=== PATIENT | male | born 1950 | race Caucasian/White ===

== ENCOUNTER 2018-08-25 13:05 | Emergency (ER) | payer MEDICARE, OTHER, SELFPAY ==
[2018-08-25 13:12] VITALS: BP 141/77; PULSE 75; RESP 14; TEMP 36.4; O2SAT 99
--- NOTE | 2018-08-25 14:28 | ED.WOUNDLAC ---
HPI - Wound/Laceration General Chief Complaint: Wound/Laceration Stated Complaint: Cut left index finger Time Seen by Provider: 08/25/18 13:40 Source: patient Mode of arrival: ambulatory Limitations: no limitations History of Present Illness HPI narrative: Patient states that he sustained a laceration to his left index finger when the finger made contact with a convex grinder blade that was still spinning. Patient states he has had full range of motion of the finger since the incident, which happened about an hour ago. He states he does not think that the blade made contact with the bone. No other injuries or complaints at this time. Related Data Previous Rx's Medication Instructions Recorded Test Strips - Freestyle strip Q DAY #100 09/12/16 albuterol sulfate [Ventolin HFA] 2 puff INH Q4HP #2 inh 10/23/17 fluticasone-salmeterol [Advair 1 puff INH BIDRT #3 inh 10/23/17 Diskus] glipizide [Glucotrol XL] 2.5 mg PO BID #180 tab 11/22/17 finasteride 5 mg PO QDAY #90 tab 11/26/17 tamsulosin [Flomax] 0.4 mg PO Q DAY #180 cap 11/26/17 fluticasone 1 spray INTRANASAL BID #16 gm 02/14/18 ciprofloxacin 250 mg tablet 500 mg PO BID #10 tab 07/09/18 levofloxacin 500 mg tablet 500 mg PO DAILY #7 tab 07/09/18 prednisone 20 mg tablet 40 mg PO DAILY #20 tab 07/09/18 Allergies Allergy/AdvReac Type Severity Reaction Status Date / Time No Known Drug Allergies Allergy Verified 08/25/18 13:21 Review of Systems Review of Systems All systems reviewed & are unremarkable except as noted in HPI and below Constitutional Denies chills, Denies fever(s), Denies lethargy and Denies weakness Eyes Denies change in vision, Denies eye discharge, Denies irritation and Denies loss of vision ENT Ears, Nose, Mouth, and Throat: Denies change in voice, Denies neck pain and Denies sore throat Cardiovascular Denies chest pain, Denies irregular heart rhythm, Denies lightheadedness, Denies palpitations, Denies dyspnea, Denies dyspnea on exertion and Denies orthopnea Respiratory Denies cough, Denies dyspnea, Denies dyspnea on exertion and Denies wheezing Gastrointestinal Gastrointestinal: Denies abdominal pain, Denies change in bowel habits, Denies diarrhea, Denies nausea and Denies vomiting Genitourinary Denies hematuria, Denies flank pain, Denies urinary incontinence and Denies urinary urgency Musculoskeletal Denies neck pain Integumentary/Breasts Denies pruritus, Denies erythema, Denies rash and Denies wounds Comments: Left 2nd finger laceration Neurologic Denies confusion, Denies loss of vision and Denies weakness Psychiatric Denies anxiety, Denies confusion, Denies depression, Denies homicidal ideation and Denies suicidal ideation Endocrine Denies palpitations Hematologic/Lymphatic Denies easy bruising Allergic/Immunologic Denies wheezing FORMERLY [facility], 1928–1983 Medical History Asthma (Chronic 1989) BPH (benign prostatic hyperplasia) (Chronic 2005) Sarcoidosis (Chronic) Cataract (Resolved 2009) Chicken pox (Resolved 1954) Measles (Resolved 1955) Retinal detachment (Resolved) Surgical History Anesthesia (Resolved) History of cataract removal with insertion of prosthetic lens (Resolved 2009) History of colonoscopy (Resolved 02/17/10) History of eye surgery (Resolved 2016) History of lung biopsy (Resolved) Status post functional endoscopic sinus surgery (FESS) (Resolved ) Family History Father Cancer Lymphoma Brother No problems noted. Brother No problems noted. Mother No problems noted. Sister No problems noted. Social History marital status: Smoking Status: Former smoker alcohol intake: current (1-2 A DAY ) substance use type: does not use Exam Initial Vital Signs Initial Vital Signs: Vital Signs Temperature 97.6 F 08/25/18 13:12 Pulse Rate 75 08/25/18 13:12 Respiratory Rate 14 08/25/18 13:12 Blood Pressure 141/77 H 08/25/18 13:12 Pulse Oximetry 99 08/25/18 13:12 Const General: cooperative and well developed Nutritional Appearance: well nourished Orientation: alert, awake, oriented x3 and not confused HENMT Head: normocephalic and atraumatic Ears: external ears normal and TM's normal bilaterally Nose: external nose normal and No nasal discharge Face and sinus: sinuses nontender, face symmetric, no sinus tenderness and No dry mucous membranes Mouth: oral mucosae normal and moist mucous membranes Teeth and gingiva: dentition normal Throat: tonsils normal and uvula midline Eyes General: appearance normal, both eyes and all related structures Eyelids: eyelids normal Conjunctivae: conjunctivae normal Sclera: sclerae normal Pupils: PERRL EOM: EOM intact bilaterally Neck Neck: normal visual inspection, trachea midline, No lymphadenopathy, No midline deformity and No JVD Lymphatic: No lymphedema Chest Chest: normal inspection of the chest Resp Effort & Inspection: normal respiratory effort, able to speak in complete sentences, no respiratory distress and no use of accessory muscles Cardio Rate: regular rate Rhythm: regular rhythm Pulses: normal peripheral pulses Back/Spine/Pelvis Back: No CVA tenderness Cervical Spine: cervical ROM normal and No pain with cervical ROM Thoracic/Lumbar Spine: thoracic and lumbar spine normal to inspection Skin General: no rashes or lesions noted, No jaundice and No petechiae Other: Patient is a 2 cm laceration on the dorsal radial aspect of his left index finger, overlying the proximal interphalangeal joint. No foreign material is noted in the. No tendon injury or intact bound. Bleeding is controlled. Neuro General: alert, oriented x3, gait normal and no focal motor deficits Speech: speech normal Extrem General: full ROM Other: Patient has full range of motion and intact strength in his left index finger. He is able in particular to extend against resistance without difficulty at both the DIP and PIP joints Psych Appearance: well kempt Mental Status: mental status grossly normal Attitude: cooperative Thought Content: normal and suicidality Judgment: judgment good Procedures Laceration Repair Laceration 1: Site: hand Side (If applicable): left Size (cm): 2 Description: linear Depth: simple, single layer Local Anesthetic: lidocaine 1% Amount of anesthesia used (mL): 2 Pre-repair: wound explored, irrigated extensively and deep structures intact Skin layer closed with: nylon Size (cm): 5-0 Number of sutures: 5 Technique: simple, interrupted Course Course Narrative: Patient's laceration was repaired, as above. We have discussed care of the wound at home, as well as the need for suture removal in 7 days. We have also discussed the signs of infection and the need for return without delay should these occur. Vital Signs - 8 hr 08/25/18 13:12 Temperature 97.6 F Pulse Rate 75 Respiratory Rate 14 Blood Pressure 141/77 H Pulse Oximetry 99 MDM - Wound/Laceration Medical Records Attestation: I reviewed the patient's medical records. Discharge Plan Departure Patient Disposition: Home Clinical Impression: Laceration Discharge Date/Time: 08/25/18 15:14 Interventions: ED Discharge Assessment Last Done: 08/25/18 15:13 Instructions: DI for Laceration Repair Activity Restrictions/Additional Instructions: Please keep your wound clean and dry, but do not immerse, rub, or scrub the wound until sutures have been removed. You should have the sutures removed in 7 days, either by your primary care physician or urgent care. If the wound split apart, develops redness spreading away from it, or drains pus, you should return to the emergency department immediately to have it evaluated for infection. Prescriptions: No Action Test Strips - Freestyle Q DAY Qty: 100 RF: 1 fluticasone-salmeterol [Advair Diskus] 500 MCG/50 MCG blister with device 1 puff INH BIDRT Qty: 3 RF: 3 albuterol sulfate [Ventolin HFA] 90 MCG/PUFF HFA aerosol inhaler 2 puff INH Q4HP Qty: 2 RF: 1 glipizide [Glucotrol XL] 2.5 MG tablet extended release 24hr 2.5 mg PO BID Qty: 180 RF: 1 tamsulosin [Flomax] 0.4 MG capsule,extended release 24hr 0.4 mg PO Q DAY Qty: 180 RF: 3 finasteride 5 MG tablet 5 mg PO QDAY Qty: 90 RF: 3 fluticasone 50 mcg/actuation spray,suspension 1 spray Intranasal BID Qty: 16 RF: 3 levofloxacin [Levaquin] 500 mg tablet 500 mg PO DAILY Qty: 7 RF: 0 prednisone 20 mg tablet 40 mg PO DAILY Qty: 20 RF: 0 ciprofloxacin HCl [Cipro] 250 mg tablet 500 mg PO BID Qty: 10 RF: 0 Referrals: Garrett Tirado MD [Primary Care Provider] - ( Please follow up in about 7 days for suture removal.)
--- NOTE | 2018-08-25 15:13 | PC.NURSE ---
pt sutures dressed with bandage, pt tolerated procedure. CMS intact. provider aware no new orders at this time.
== END 2018-08-25 15:14 | disposition home or self-care (01) ==
PROVIDERS: Emergency Provider Emergency Medicine; Family Provider Family Medicine; PCP Family Medicine
DX: S61.211A Laceration without foreign body of left index finger without damage to nail, initial encounter (principal); W31.1XXA Contact with metalworking machines, initial encounter
CPT/HCPCS: 12001; 12002; 99282; 99283

== ENCOUNTER → 2018-09-16 08:26 | Outpatient (CLI) | payer MEDICARE, OTHER, SELFPAY ==
[2018-09-16 08:59] LABS: Add Manual Diff / Slide Review NO; Basophils Percent Auto 1.2 % (0-2); Hematocrit 40.8 % (41-53); Hemoglobin 13.4 g/dL (13.5-17.5); Lymphocytes Percent Auto 26.3 % (25-40); Mean Corpuscular Hemoglobin 30.8 PG (26-34); Mean Corpuscular Volume 93.3 fL (80-100); Monocytes Percent Auto 10.1 % (3-14); Neutrophils Absolute Auto 2700 /uL (3000-5900); Neutrophils Percent Auto 50.4 % (50-75); Platelet Count 133 X10^3/uL (150-400); Red Blood Cell Count 4.37 X10^6/uL (4.5-5.9); Red Cell Distribution Width 13.5 % (11.6-14.8); White Blood Cell Count 5.4 X10^3/uL (4.5-11.0)
[2018-09-16 09:06] LABS: Hemoglobin A1C% w Est Avg Glu 5.7 % (4.0-6.0)
[2018-09-16 09:35] LABS: Alanine Aminotransferase 23 IU/L (21-72); Albumin 4.3 g/dL (3.5-5.0); Albumin Globulin Ratio 1.2 (1.0-2.8); Alkaline Phosphatase 70 U/L (38-126); Aspartate Aminotransferase 27 IU/L (17-59); BUN Creatinine Ratio 26.4 (6-22); Bilirubin Total 1.1 mg/dL (0.2-1.3); Blood Urea Nitrogen 29 mg/dL (9-20); Calcium 9.7 mg/dL (8.4-10.2); Carbon Dioxide 30 mmol/L (22-32); Chloride 102 mmol/L (98-107); Cholesterol 197 mg/dL (140-199); Estimated Glomerular Filt Rate > 60.0 mL/min (>60); Globulin 3.5 g/dL (1.7-4.1); Glucose 132 mg/dL (80-110); HDL Cholesterol 86 mg/dL (40-60); HEMOLYSIS < 15 (0-50); LDL Cholesterol Calculated 96 mg/dL (<100); Potassium 4.5 mmol/L (3.4-5.1); Sodium 142 mmol/L (137-145); Total Protein 7.8 g/dL (6.3-8.2); Triglycerides 77 mg/dL (35-150)
[2018-09-16 10:01] LABS: TSH w/ Reflex to FT4 2.76 uIU/mL (0.47-4.68)
== END ==
PROVIDERS: Family Provider Family Medicine; PCP Family Medicine; Visit Provider Family Medicine
DX: E11.9 Type 2 diabetes mellitus without complications (principal); E78.5 Hyperlipidemia, unspecified; J44.9 Chronic obstructive pulmonary disease, unspecified; Z12.5 Encounter for screening for malignant neoplasm of prostate
CPT/HCPCS: 36415; 80053; 80061; 83036; 84443; 85025; G0103

== ENCOUNTER → 2019-09-16 08:31 | Outpatient (CLI) | payer MEDICARE, OTHER, SELFPAY ==
[2019-09-16 09:24] LABS: Add Manual Diff / Slide Review NO; Basophils Absolute Auto 0 /uL (0-100); Basophils Percent Auto 0.7 % (0-2); Eosinophils Absolute Auto 400 /uL (0-450); Eosinophils Percent Auto 6.5 % (2-4); Hematocrit 39.9 % (41-53); Hemoglobin 13.6 g/dL (13.5-17.5); Lymphocytes Absolute Auto 1600 /uL (1100-4500); Lymphocytes Percent Auto 26.4 % (25-40); Mean Corpuscular Hemoglobin 31.6 PG (26-34); Mean Corpuscular Volume 92.7 fL (80-100); Monocytes Absolute Auto 600 /uL (0-900); Monocytes Percent Auto 10.7 % (3-14); Neutrophils Absolute Auto 3300 /uL (1500-7000); Neutrophils Percent Auto 55.7 % (50-75); Platelet Count 147 X10^3/uL (150-400); Red Cell Distribution Width 13.2 % (11.6-14.8); White Blood Cell Count 5.9 X10^3/uL (4.5-11.0)
[2019-09-16 09:38] LABS: Alanine Aminotransferase 17 IU/L (<50); Albumin 4.5 g/dL (3.5-5.0); Albumin Globulin Ratio 1.4 (1.0-2.8); Alkaline Phosphatase 79 U/L (38-126); Aspartate Aminotransferase 29 IU/L (17-59); BUN Creatinine Ratio 25.8 (6-22); Blood Urea Nitrogen 31 mg/dL (9-20); Calcium 9.5 mg/dL (8.4-10.2); Carbon Dioxide 28 mmol/L (22-32); Chloride 104 mmol/L (98-107); Cholesterol 211 mg/dL (140-199); Estimated Glomerular Filt Rate 59.7 mL/min (>60); Globulin 3.3 g/dL (1.7-4.1); Glucose 116 mg/dL (80-110); HDL Cholesterol 83 mg/dL (40-60); HEMOLYSIS < 15 (0-50); Hemoglobin A1C% w Est Avg Glu 5.6 % (4.0-6.0); LDL Cholesterol Calculated 116 mg/dL (<100); Potassium 4.1 mmol/L (3.4-5.1); Sodium 140 mmol/L (137-145); Total Protein 7.8 g/dL (6.3-8.2); Triglycerides 60 mg/dL (35-150)
[2019-09-16 10:08] LABS: Prostate Specific Antigen Scrn 1.32 ng/mL (0.1-4.0)
[2019-09-16 10:37] LABS: TSH w/ Reflex to FT4 3.31 uIU/mL (0.47-4.68)
== END ==
PROVIDERS: PCP Family Medicine; Visit Provider Family Medicine
DX: Z12.5 Encounter for screening for malignant neoplasm of prostate (principal); E11.9 Type 2 diabetes mellitus without complications
CPT/HCPCS: 36415; 80053; 80061; 83036; 84443; 85025; G0103

== ENCOUNTER → 2020-11-05 12:25 | Outpatient (CLI) | payer MEDICARE, OTHER, SELFPAY ==
[2020-11-05] MEDS: COVID-19 VACC #1, MRNA(MOD) 100 MCG/0.5 ML VIAL IM (12:27)
== END ==
PROVIDERS: PCP Family Medicine; Visit Provider Internal Medicine
DX: Z23 Encounter for immunization (principal)
CPT/HCPCS: 0011A; 91301

== ENCOUNTER → 2020-11-25 07:58 | Outpatient (CLI) | payer MEDICARE, OTHER, SELFPAY ==
--- NOTE | 2020-11-25 08:00 | DI.RAD.S_ITS ---
PROCEDURE: XR KNEE LT 3V INDICATIONS: knee pain TECHNIQUE: 3 views of the knee were acquired. COMPARISON: [facility], , KNEE 3V LEFT, 01/12/2010, 11:32. FINDINGS: Bones: No fractures or dislocations. No suspicious bony lesions. Degenerative changes are minimal. Soft tissues: No joint effusion. No suspicious soft tissue calcifications. IMPRESSION: Minimal degenerative changes. No acute abnormality. If the pain continues, consider MRI. Dictated by: Bryant Wells M.D. on 11/25/2020 at 8:29 Approved by: Bryant Wells M.D. on 11/25/2020 at 8:30
[2020-11-25 08:57] LABS: Add Manual Diff / Slide Review NO; Basophils Absolute Auto 0 /uL (0-100); Basophils Percent Auto 0.7 % (0-2); Eosinophils Absolute Auto 400 /uL (0-450); Eosinophils Percent Auto 7.3 % (2-4); Hemoglobin 13.3 g/dL (13.5-17.5); Lymphocytes Absolute Auto 1500 /uL (1100-4500); Lymphocytes Percent Auto 32.1 % (25-40); Mean Corpuscular HGB Conc 33.2 % (30-36); Mean Corpuscular Hemoglobin 30.9 PG (26-34); Monocytes Absolute Auto 600 /uL (0-900); Monocytes Percent Auto 11.8 % (3-14); Neutrophils Absolute Auto 2300 /uL (1500-7000); Neutrophils Percent Auto 48.1 % (50-75); Platelet Count 127 X10^3/uL (150-400); Red Cell Distribution Width 12.9 % (11.6-14.8); White Blood Cell Count 4.8 X10^3/uL (4.5-11.0)
[2020-11-25 09:04] LABS: Hemoglobin A1C% w Est Avg Glu 5.8 % (4.0-6.0)
[2020-11-25 09:38] LABS: Alanine Aminotransferase 15 IU/L (<50); Albumin 4.1 g/dL (3.5-5.0); Albumin Globulin Ratio 1.2 (1.0-2.8); Alkaline Phosphatase 69 U/L (38-126); Aspartate Aminotransferase 28 IU/L (17-59); BUN Creatinine Ratio 32.5 (6-22); Bilirubin Total 0.7 mg/dL (0.2-1.3); Blood Urea Nitrogen 39 mg/dL (9-20); Calcium 9.6 mg/dL (8.4-10.2); Carbon Dioxide 32 mmol/L (22-32); Chloride 104 mmol/L (98-107); Cholesterol 197 mg/dL (140-199); Estimated Glomerular Filt Rate 59.5 mL/min (>60); Globulin 3.3 g/dL (1.7-4.1); Glucose 117 mg/dL (80-110); HDL Cholesterol 88 mg/dL (40-60); HEMOLYSIS < 15 (0-50); LDL Cholesterol Calculated 100 mg/dL (<100); Potassium 4.8 mmol/L (3.4-5.1); Sodium 139 mmol/L (137-145); Total Protein 7.4 g/dL (6.3-8.2); Triglycerides 44 mg/dL (35-150)
[2020-11-25 10:00] LABS: TSH w/ Reflex to FT4 1.95 uIU/mL (0.47-4.68)
[2020-11-25 10:03] LABS: Prostate Specific Antigen 1.02 ng/mL (0.10-4.00)
[2020-11-25 10:52] LABS: Creatinine Urine Random 163.5 mg/dL
[2020-11-25 10:56] LABS: Microalbumi Creatinin Ratio Ur 14.6 ug/mg CR (<30); Microalbumin Urine Random 2.4 mg/dL (0-1.6)
== END ==
PROVIDERS: PCP Family Medicine; Referring Provider Family Medicine; Visit Provider Family Medicine
DX: M25.562 Pain in left knee (principal); E11.9 Type 2 diabetes mellitus without complications; N40.0 Benign prostatic hyperplasia without lower urinary tract symptoms; D69.6 Thrombocytopenia, unspecified; N18.2 Chronic kidney disease, stage 2 (mild)
CPT/HCPCS: 36415; 73562; 80053; 80061; 82043; 82570; 83036; 84153; 84443; 85025

== ENCOUNTER → 2020-12-03 13:03 | Outpatient (CLI) | payer MEDICARE, OTHER, SELFPAY ==
[2020-12-03] MEDS: COVID-19 VACC #2, MRNA(MOD) 100 MCG/0.5 ML VIAL IM (13:07)
== END ==
PROVIDERS: PCP Family Medicine; Visit Provider Internal Medicine
DX: Z23 Encounter for immunization (principal)
CPT/HCPCS: 0012A; 91301

== ENCOUNTER → 2021-04-15 08:31 | Outpatient (CLI) | payer MEDICARE, OTHER, SELFPAY ==
[2021-04-15 11:12] LABS: COVID19 -Nasal RAPID Negative (Negative)
== END ==
PROVIDERS: PCP Family Medicine; Visit Provider Specialist
DX: Z20.822 Contact with and (suspected) exposure to COVID-19 (principal)
CPT/HCPCS: 87635; C9803

== ENCOUNTER 2021-04-18 08:09 | Day surgery (SDC) | payer MEDICARE, OTHER, SELFPAY ==
[2021-04-18 08:24] VITALS: BP 152/85; PULSE 48; RESP 14; TEMP 36.2; O2SAT 97; BMI 20.3
[2021-04-18] MEDS: LACTATED RINGERS 1,000 ML 100 ML IV (08:31)
--- NOTE | 2021-04-18 08:59 | PM.HP.1 ---
History of Present Illness History of Present Illness Date Patient Seen: 04/18/21 Time Patient Seen: 08:59 Chief complaint: SCREENING COLONOSCOPY Narrative: The patient presents for colorectal sreening. Previous colonoscopy 11 years ago normal. No personal or family history of colon cancer. On further history denies any recent gastrointestinal symptoms. No nausea, vomiting, abdominal pain, loss of appetite, unexplained weight loss, change in bowel habits, diarrhea, constipation, melena, hematochezia, or bright red blood per rectum. Patient History Medical History Asthma (1989) BPH (benign prostatic hyperplasia) (2005) Cataract (2009) Chicken pox (1954) Measles (1955) Retinal detachment Sarcoidosis Surgical History Anesthesia History of cataract removal with insertion of prosthetic lens (2009) History of colonoscopy (02/17/10) History of eye surgery (2016) History of lung biopsy Status post functional endoscopic sinus surgery (FESS) (~1989) Family & Social History Family History Father Cancer Lymphoma Brother No problems noted. Brother No problems noted. Mother No problems noted. Sister No problems noted. Social History: household members spouse Tobacco & Substance use: Tobacco type cigarettes Smoking Status Former smoker alcohol intake current alcohol intake frequency 0-2 drinks per day Substance Use Type does not use Meds Home Medications and Allergies Home Medications Medication Instructions Recorded Confirmed Type Test Strips - Freestyle strip Q DAY #100 09/12/16 11/23/20 Rx albuterol sulfate 90 mcg/actuation 2 puff INHALATION Q4HP PRN #18 gram 07/15/19 04/18/21 Rx aerosol inhaler (Ventolin HFA) fluticasone 500 mcg-salmeterol 50 1 ea INHALATION BID #180 each 05/05/20 04/18/21 Rx mcg/dose blistr powdr for inhalation (Advair Diskus) finasteride 5 mg tablet 5 mg PO QDAY #90 tab 02/14/21 04/18/21 Rx tamsulosin 0.4 mg capsule (Flomax) 0.4 mg PO Q DAY #180 cap 02/14/21 04/18/21 Rx fluticasone propionate 50 1 spray INTRANASAL BID PRN 04/18/21 04/18/21 History mcg/actuation nasal spray,suspension glipizide 2.5 mg tablet, extended 2.5 mg PO DAILY 04/18/21 04/18/21 History release 24 hr (Glucotrol XL) Allergies Allergy/AdvReac Type Severity Reaction Status Date / Time No Known Drug Allergies Allergy Verified 04/18/21 08:18 Review of Systems Review of Systems ROS: Yes All systems reviewed with the patient and are negative except as otherwise documented Exam Vital Signs (past 8 hours): - 04/18/21 08:24 Temperature 97.2 F L Pulse Rate 48 L Respiratory Rate 14 Blood Pressure 152/85 H Pulse Oximetry 97 Oxygen Delivery Method Room Air Narrative Exam Narrative: GENERAL-well developed elderly male, no acute distress HEENT-no scleral icterus, hearing intact NECK-no JVD, trachea midline CVS- regular rate, no peripheral edema RESP-unlabored respiratory effort, no audible wheezing GI-soft, nontender nondistended MSK-no cyanosis or clubbing, extremities without deformity SKIN-warm, dry NEURO-alert and oriented, no focal deficits PYSCH-Appropriate mood and affect Assessment & Plan Assessment & Plan narrative: The patient requires colorectal screening and colonoscopy is recommended. Technical details were discussed. Risks, benefits, alternatives explained. Risks including but not limited to myocardial infarction, aspiration, bleeding, pain, missed lesion, incomplete examination, need for further radiographic studies, colonic perforation, and need for major abdominal surgery were discussed. All questions were answered to their satisfaction, and they are in agreement with this plan.
[2021-04-18 09:30] VITALS: BP 142/74; PULSE 84; RESP 16; O2SAT 100
--- NOTE | 2021-04-18 10:17 | SUR.PHASEII ---
Pt returned to preop from endo. Report from CLAU Padron. EKG done - con't to show PVC's. Pt denies SOB or chest pain. Dr Yanez at bedside talking with pt. Procedure cancelled. Pt discharged to home. I spoke with pt's and explained reason for cancellation. Pt will follow up with PCP.
== END 2021-04-18 09:40 | disposition home or self-care (01) ==
PROVIDERS: PCP Family Medicine; Referring Provider Surgery; Visit Provider Surgery
PROC: 0DJD8ZZ Inspection of Lower Intestinal Tract, Via Natural or Artificial Opening Endoscopic (ICD-10-PCS; CPT 45378; principal; 2021-04-18 09:15)
DX: Z12.11 Encounter for screening for malignant neoplasm of colon (principal); Z53.09 Procedure and treatment not carried out because of other contraindication; I47.2 Ventricular tachycardia
CPT/HCPCS: G0121; 93005; 93010

== ENCOUNTER → 2021-05-03 08:50 | Outpatient (CLI) | payer MEDICARE, OTHER, SELFPAY ==
--- NOTE | 2021-05-03 08:51 | DI.ECHO.S_ITS ---
[facility] +---------+ : : [address] : [place] : : : : [id number] : : : : Phone: [phone]+ Echocardiogram Report + + :Name: DODIE MARKS Study Date: 05/03/2021 Height: 71 in : :[facility] ReadingLocation: Weight: 150 lb : : Gender: Male BSA: 1.9 m2 : :: 1950 Age: 71 yrs BP: 146/80 mmHg: :Reason For Study: VENTIRUCLAR PREMATURE DEPOLARIZATION : :Ordering Physician: ISABEL, : :JOSE RAUL Performed By: Natalia Waldrop : :Referring: JOSE RAUL HALL : + + Interpretation Summary 1) Normal left ventricular size and thickness with moderately reduced systolic function (EF 35-40%. 2) Normal right ventricular size and function. 3) No significant valvular abnormalities. 4) No prior Echo availalbe for comparison. Procedure: A two-dimensional transthoracic echocardiogram with color flow and Doppler was performed. The study quality was technically adequate. There is no prior echocardiogram noted for this patient. The patient had occasional PVCs during the exam. The patient was in sinus rhythm with heart rates between 67-80 bpm during the exam. Left Ventricle: The left ventricle is normal in size and wall thickness. Left ventricular global longitudinal strain average is -14.5%. The ejection fraction is estimated to be 35-40%. Diastolic parameters suggest a relaxation abnormality of the left ventricle, consistent with probable normal filling pressures. Right Ventricle: The right ventricle is normal size. The right ventricular systolic function is normal. Atria: The left atrium is moderately dilated. Right atrial size is normal. There is no Doppler evidence for an interatrial shunt. Mitral Valve: The mitral valve leaflets appear borderline thickened, but open well. There is mild mitral regurgitation. Aortic Valve: The aortic valve is trileaflet. The aortic valve is mildly calcified. There is mild aortic valve sclerosis. There is no aortic valve stenosis. There is trace aortic regurgitation. Tricuspid Valve: The tricuspid valve is normal in structure and function. There is mild tricuspid regurgitation. Pulmonic Valve: The pulmonic valve leaflets are thin and pliable; valve motion is normal. There is mild pulmonic regurgitation. Great Vessels: The aortic root is normal size. The dimensions of the ascending aorta are normal. The IVC is of normal diameter and collapses greater than 50% with a sniff. This suggests a low right atrial pressure of 3 mm Hg. Pericardium/ Pleura There is no pericardial effusion. There is no pleural effusion. MMode/2D Measurements & Calculations LVIDd: 5.6 cm LVOT diam: 2.0 cm LVIDs: 4.5 cm Ao root diam: 3.2 cm FS: 19.6 % asc Aorta Diam: 2.8 cm EPSS: 1.7 cm Ao Arch Diam (Prox Trans): 3.1 cm IVSd: 0.68 cm LVPWd: 0.64 cm LV baxter. diameter/BSA (cm/m^2): 3.0 LV sys. diameter/BSA (cm/m^2): 2.4 LA A2 area: 20.4 cm2 RA long axis: 5.2 cm LA A4 area: 19.1 cm2 RA area: 17.7 cm2 LA length (vol): 4.7 cm RA vol: 51.0 ml LA vol: 70.6 ml RA : 27.3 ml/m2 LA vol index: 37.8 ml/m2 IVC diam: 1.7 cm RVD1 (basal): 4.0 cm TAPSE: 2.0 cm Doppler Measurements & Calculations Ao V2 max: 165.3 cm/sec LVOT Max Shin: 66.6 cm/sec Ao V2 mean: 120.2 cm/sec LV V1 max P.8 mmHg Ao max P.9 mmHg LV V1 VTI: 17.4 cm Ao mean P.2 mmHg DANIEL(I,D): 1.4 cm2 Ao V2 VTI: 39.8 cm DANIEL(V,D): 1.3 cm2 sev ratio: 0.44 DANIEL indexed to BSA (cm^2/m^2): 0.73 MV E max shin: 51.6 cm/sec PA pr(Accel): 25.9 mmHg MV A max shin: 80.4 cm/sec MV E/A: 0.64 Med Peak E' Shin: 4.5 cm/sec E/E' med: 11.5 Lat Peak E' Shin: 5.9 cm/sec E/E' lat: 8.7 E/e' average: 10.1 MV dec time: 0.30 sec SV(LVOT): 54.4 ml Reading Physician:03:29 PM
== END ==
PROVIDERS: PCP Family Medicine; Referring Provider Family Medicine; Visit Provider Family Medicine
DX: I08.3 Combined rheumatic disorders of mitral, aortic and tricuspid valves (principal); I49.3 Ventricular premature depolarization; I45.10 Unspecified right bundle-branch block
CPT/HCPCS: 93306

== ENCOUNTER → 2021-06-16 07:23 | Outpatient (CLI) | payer MEDICARE, OTHER, SELFPAY ==
[2021-06-16 08:56] LABS: BUN Creatinine Ratio 27.2 (6-22); Blood Urea Nitrogen 37 mg/dL (9-20); Calcium 9.7 mg/dL (8.4-10.2); Carbon Dioxide 28 mmol/L (22-32); Chloride 104 mmol/L (98-107); Estimated Glomerular Filt Rate 51.4 mL/min (>60); Glucose 122 mg/dL (80-110); HEMOLYSIS < 15 (0-50); Potassium 4.8 mmol/L (3.4-5.1); Sodium 137 mmol/L (137-145)
== END ==
PROVIDERS: PCP Family Medicine; Referring Provider Internal Medicine Cardiovascular Disease; Visit Provider Internal Medicine Cardiovascular Disease
DX: I42.9 Cardiomyopathy, unspecified (principal)
CPT/HCPCS: 36415; 80048

== ENCOUNTER → 2021-11-07 09:27 | Outpatient (CLI) | payer MEDICARE, OTHER, SELFPAY ==
[2021-11-07 10:56] LABS: Add Manual Diff / Slide Review NO; Basophils Absolute Auto 0 /uL (0-100); Basophils Percent Auto 0.9 % (0-2); Eosinophils Absolute Auto 400 /uL (0-450); Eosinophils Percent Auto 7.2 % (2-4); Hematocrit 37.6 % (41-53); Hemoglobin 12.8 g/dL (13.5-17.5); Lymphocytes Absolute Auto 1200 /uL (1100-4500); Lymphocytes Percent Auto 22.6 % (25-40); Mean Corpuscular HGB Conc 33.9 % (30-36); Mean Corpuscular Hemoglobin 31.2 PG (26-34); Mean Corpuscular Volume 91.9 fL (80-100); Monocytes Absolute Auto 700 /uL (0-900); Monocytes Percent Auto 12.3 % (3-14); Neutrophils Absolute Auto 3100 /uL (1500-7000); Platelet Count 149 X10^3/uL (150-400); Red Blood Cell Count 4.09 X10^6/uL (4.5-5.9); Red Cell Distribution Width 12.8 % (11.6-14.8); White Blood Cell Count 5.5 X10^3/uL (4.5-11.0)
[2021-11-07 11:37] LABS: Alanine Aminotransferase 16 IU/L (<50); Albumin 4.5 g/dL (3.5-5.0); Albumin Globulin Ratio 1.3 (1.0-2.8); Alkaline Phosphatase 67 U/L (38-126); Aspartate Aminotransferase 29 IU/L (17-59); BUN Creatinine Ratio 26.7 (6-22); Blood Urea Nitrogen 32 mg/dL (9-20); Calcium 9.8 mg/dL (8.4-10.2); Carbon Dioxide 30 mmol/L (22-32); Chloride 105 mmol/L (98-107); Estimated Glomerular Filt Rate 59.3 mL/min (>60); Globulin 3.6 g/dL (1.7-4.1); Glucose 131 mg/dL (80-110); HEMOLYSIS 17 (0-50); Sodium 139 mmol/L (137-145); Total Protein 8.1 g/dL (6.3-8.2)
== END ==
PROVIDERS: PCP Family Medicine; Referring Provider Family Medicine; Visit Provider Family Medicine
DX: I50.22 Chronic systolic (congestive) heart failure (principal); N18.2 Chronic kidney disease, stage 2 (mild); E11.22 Type 2 diabetes mellitus with diabetic chronic kidney disease
CPT/HCPCS: 36415; 80053; 83036; 85025

== ENCOUNTER → 2021-11-09 10:25 | Outpatient (CLI) | payer MEDICARE, OTHER, SELFPAY ==
[2021-11-09 11:16] LABS: Ferritin 131 ng/mL (18-464)
== END ==
PROVIDERS: PCP Family Medicine; Visit Provider Family Medicine
DX: D64.9 Anemia, unspecified (principal)
CPT/HCPCS: 82728

== ENCOUNTER → 2021-12-26 09:48 | Outpatient (CLI) | payer MEDICARE, OTHER, SELFPAY ==
[2021-12-26 11:07] LABS: Hematocrit 38.4 % (41-53); Hemoglobin 12.9 g/dL (13.5-17.5)
[2021-12-26 11:42] LABS: HEMOLYSIS < 15 (0-50); Iron 69 ug/dL (49-181)
[2021-12-26 11:54] LABS: Ferritin 139 ng/mL (18-464); Percent Iron Saturation 26 % (20-50); Total Iron Binding Capacity 263 ug/dL (261-462); Transferrin 207 mg/dL (206-381)
== END ==
PROVIDERS: PCP Family Medicine; Referring Provider Family Medicine; Visit Provider Family Medicine
DX: D64.9 Anemia, unspecified (principal)
CPT/HCPCS: 36415; 82728; 83540; 83550; 85014; 85018

== ENCOUNTER → 2022-02-09 11:37 | Outpatient (CLI) | payer MEDICARE, OTHER, SELFPAY ==
--- NOTE | 2022-02-09 11:39 | DI.RAD.S_ITS ---
PROCEDURE: XR SHOULDER LT MIN 2V INDICATIONS: left shoulder pain TECHNIQUE: 3 views of the shoulder were acquired. COMPARISON: [facility], , CHEST 2 VIEW, 09/11/2014, 10:49. FINDINGS: Bones: No fractures or dislocations. No suspicious bony lesions. Visualized ribs appear intact. 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 Soft tissues: No suspicious soft tissue calcifications. Multiple nodular densities in the visualized left lung not significantly changed compared to September 11, 2014. 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 Dictated by: Florencia Fermin MD, PhD on 02/09/2022 at 16:02 Approved by: Florencia Fermin MD, PhD on 02/09/2022 at 16:05
== END ==
PROVIDERS: PCP Family Medicine; Referring Provider Family Medicine; Visit Provider Family Medicine
DX: M25.512 Pain in left shoulder (principal); M19.012 Primary osteoarthritis, left shoulder
CPT/HCPCS: 73030

== ENCOUNTER 2022-11-22 09:41 | Emergency (ER) | payer MEDICARE, OTHER, SELFPAY ==
[2022-11-22 10:04] VITALS: BP 109/55; PULSE 100; RESP 18; TEMP 37.4; O2SAT 95; BMI 20.9
--- NOTE | 2022-11-22 10:07 | DI.RAD.S_ITS ---
PROCEDURE: XR CHEST 1V INDICATIONS: Shortness of breath TECHNIQUE: One view of the chest was acquired. COMPARISON: [facility], CHEST 2 VIEW, 08/04/2008, 13:51. [facility], CHEST 2 VIEW, 09/11/2014, 10:49. FINDINGS: Surgical changes and devices: None. Lungs and pleura: A chronic right perihilar masslike density can be seen. Scattered pulmonary nodules are seen, which are improved compared to 2014. Low lung volumes are noted. This causes a crowded appearance to the lung markings and limits evaluation. No pneumothorax or pleural effusion can be seen. Mediastinum: Mediastinal contours appear normal. Heart size is normal. Bones and chest wall: Age-appropriate bony degenerative changes are seen. No suspicious bony lesions. Overlying soft tissues appear unremarkable. IMPRESSION: No scott acute abnormality is seen. Stable right perihilar masslike opacity. Improved pulmonary nodules compared to 2013. Dictated by: Rio Paulino M.D. on 11/22/2022 at 9:31 Approved by: Rio Paulino M.D. on 11/22/2022 at 9:32
[2022-11-22] MEDS: ALBUTEROL 2.5 MG/3 ML NEB (ADULT) INH (10:12)
[2022-11-22 10:13] VITALS: PULSE 86; RESP 16; O2SAT 95
[2022-11-22 10:25] LABS: INR 1.3 (0.9-1.3); Prothrombin Time 14.8 SECONDS (10.1-12.7)
[2022-11-22 10:29] LABS: Add Manual Diff / Slide Review NO; Basophils Absolute Auto 100 /uL (0-100); Basophils Percent Auto 0.4 % (0-2); Eosinophils Absolute Auto 0 /uL (0-450); Eosinophils Percent Auto 0.1 % (2-4); Hematocrit 36.5 % (41-53); Hemoglobin 12.2 g/dL (13.5-17.5); Lymphocytes Absolute Auto 300 /uL (1100-4500); Lymphocytes Percent Auto 2.5 % (25-40); Mean Corpuscular HGB Conc 33.5 % (30-36); Mean Corpuscular Hemoglobin 30.1 PG (26-34); Mean Corpuscular Volume 89.8 fL (80-100); Monocytes Absolute Auto 1000 /uL (0-900); Monocytes Percent Auto 7.1 % (3-14); Neutrophils Absolute Auto 12600 /uL (1500-7000); Neutrophils Percent Auto 89.9 % (50-75); Platelet Count 134 X10^3/uL (150-400); Red Blood Cell Count 4.07 X10^6/uL (4.5-5.9); Red Cell Distribution Width 12.8 % (11.6-14.8)
[2022-11-22 10:30] LABS: Lactate (Lactic Acid) 1.6 mmol/L (0.7-2.1)
[2022-11-22 10:31] LABS: Alanine Aminotransferase 54 IU/L (<50); Albumin 4.1 g/dL (3.5-5.0); Albumin Globulin Ratio 1.1 (1.0-2.8); Alkaline Phosphatase 120 U/L (38-126); Aspartate Aminotransferase 64 IU/L (17-59); BUN Creatinine Ratio 23.4 (6-22); Bilirubin Total 1.9 mg/dL (0.2-1.3); Blood Urea Nitrogen 30 mg/dL (9-20); Calcium 9.3 mg/dL (8.4-10.2); Carbon Dioxide 23 mmol/L (22-32); Chloride 105 mmol/L (98-107); Estimated Glomerular Filt Rate 59 mL/min (>60); Globulin 3.7 g/dL (1.7-4.1); Glucose 152 mg/dL (80-110); HEMOLYSIS 22 (0-50); Potassium 4.1 mmol/L (3.4-5.1); Sodium 138 mmol/L (137-145); Total Protein 7.8 g/dL (6.3-8.2)
[2022-11-22 10:43] LABS: NT-proBNP (BNP-Adult 18+) 1720 pg/mL (<125); Troponin I < 0.012 ng/mL (0.01-0.034)
--- NOTE | 2022-11-22 11:33 | ED_ITS ---
HPI - SOB/Dyspnea General Chief Complaint: Shortness of Breath/Dyspnea Stated Complaint: woozy/fever/chills sore spot in lungs T-3 Time Seen by Provider: 11/22/22 11:24 Source: patient Mode of arrival: Ambulatory Limitations: no limitations History of Present Illness HPI Narrative: Patient is COVID vaccinated, however tested positive for COVID 3 weeks ago. Started feeling better but now feeling short of breath for the past 4 days with fever and cough. 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 Primary care is Dr. Tirado. However has not seen provider in the last 3 weeks for this complaint. Temperature 101? F this morning took Tylenol prior to arrival. Patient feels better after breathing treatment. Related Data Home Medications Medication Instructions Recorded Confirmed fluticasone propionate 50 1 spray intranasal BID PRN 04/18/21 05/01/22 mcg/actuation nasal allergies spray,suspension metoprolol succinate 50 mg 50 mg PO DAILY 07/28/21 05/01/22 tablet,extended release 24 hr Previous Rx's Medication Instructions Recorded Test Strips - Freestyle strip Q DAY ##100 09/12/16 blood sugar diagnostic (Contour #100 ea 07/28/21 Next Test Strips) glipizide 2.5 mg tablet, extended 2.5 mg PO DAILY #90 tabs 12/26/21 release 24 hr (Glucotrol XL) albuterol sulfate 90 mcg/actuation 2 puff inhalation Q4HP PRN 02/03/22 aerosol inhaler (Ventolin HFA) shortness of breath or wheezing #18 grams finasteride 5 mg tablet 5 mg PO QDAY #90 tabs 02/15/22 tamsulosin 0.4 mg capsule (Flomax) 0.4 mg PO Q DAY #180 caps 02/15/22 fluticasone 500 mcg-salmeterol 50 1 ea inhalation BID #180 ea 07/20/22 mcg/dose blistr powdr for inhalation (Advair Diskus) amoxicillin 875 mg-potassium 1 tab PO BID #14 tabs 11/22/22 clavulanate 125 mg tablet doxycycline monohydrate 100 mg 100 mg PO BID #14 caps 11/22/22 capsule Allergies Allergy/AdvReac Type Severity Reaction Status Date / Time No Known Drug Allergies Allergy Verified 05/01/22 09:43 Review of Systems Review of Systems Narrative: GENERAL: Positive chills, fatigue, malaise, fever, sweats. HEENT: negative sinus pain, ear pain, sore throat RESPIRATORY: Positive dyspnea, cough CARDIOVASCULAR: negative chest pain, palpitations GASTROINTESTINAL: negative nausea, vomiting, abdominal pain : negative dysuria, frequency, hematuria MUSCULOSKELETAL: negative muscle or bony pain SKIN: negative rash, skin lesions NEUROLOGIC: negative weakness, numbness ROS Unobtainable: All systems reviewed & are unremarkable except as noted in HPI and below Patient History Medical History Asthma (1989) BPH (benign prostatic hyperplasia) (2005) Cataract (2009) Chicken pox (1954) Enlarged heart Left knee pain Measles (1955) Retinal detachment Sarcoidosis Type 2 diabetes mellitus without complications Surgical History Anesthesia History of cataract removal with insertion of prosthetic lens (2009) History of colonoscopy (02/17/10) History of eye surgery (2016) History of lung biopsy Status post functional endoscopic sinus surgery (FESS) (~1989) Family History Father Cancer Lymphoma Brother No problems noted. Brother No problems noted. Mother No problems noted. Sister No problems noted. Social History marital status: household members: spouse Smoking Status: Former smoker alcohol intake: current substance use type: does not use Smoking Status: Former smoker alcohol intake frequency: holidays/special occasions only Substance Use Type: does not use Exam Narrative Exam Narrative: GENERAL: in no distress, not toxic not dyspneic HEAD: Normocephalic. EYES: Pupils equal round ENT: Mucous membranes moist. NECK: Trachea midline. CARDIOVASCULAR: Regular rate and rhythm without murmurs RESPIRATORY: Clear to auscultation. Breath sounds equal bilaterally. No wheezes, rales, or rhonchi. Speaking full sentences. Patient had breathing treatment prior to my evaluation GASTROINTESTINAL: Abdomen soft, non-tender EXTREMITIES: No gross deformities. BACK: No flank tenderness. NEURO: AOx4. SKIN: Warm and dry PSYCH: Not anxious, is cooperative Initial Vital Signs Initial Vital Signs: Vital Signs Temperature 99.3 F 11/22/22 10:04 Pulse Rate 100 H 11/22/22 10:04 Respiratory Rate 18 11/22/22 10:04 Blood Pressure 109/55 L 11/22/22 10:04 Pulse Oximetry 95 11/22/22 10:04 Oxygen Delivery Method 11/22/22 10:04 Course Orders Ordered: Discontinued Medications Albuterol (Albuterol 2.5 Mg/3 Ml Neb (Adult)) 2.5 mg INH NOW ONE Stop: 11/22/22 10:13 Last Admin: 11/22/22 10:12 Dose: 2.5 mg Documented By: ChristelZF Amoxicillin/Clavulanate Potassium (Amoxicillin/Clav 875/125 Mg) 1 tab PO NOW ONE Stop: 11/22/22 14:52 Last Admin: 11/22/22 15:02 Dose: 1 tab Documented By: ANDREA Doxycycline Hyclate (Doxycycline Hyclate 100 Mg Tablet) 100 mg PO NOW ONE Stop: 11/22/22 14:52 Last Admin: 11/22/22 15:02 Dose: 100 mg Documented By: ANDREA Sodium Chloride (Normal Saline 0.9%) 500 mls @ 1,000 mls/hr IV BOLUS ONE Stop: 11/22/22 12:02 Last Infusion: 11/22/22 13:33 Dose: 0 mls/hr Documented By: Admin: 11/22/22 11:55 Dose: 1,000 mls/hr Documented By: DARREN Vital Signs Vital signs: Vital Signs - 8 hr 11/22/22 10:04 11/22/22 10:13 11/22/22 11:50 Temperature 99.3 F Pulse Rate 100 H 86 89 Respiratory Rate 18 16 33 H Blood Pressure 109/55 L Pulse Oximetry 95 95 Oxygen Delivery Method Room Air Room Air 11/22/22 11:56 11/22/22 11:56 11/22/22 12:00 Temperature Pulse Rate 91 H Respiratory Rate 21 Blood Pressure 137/61 133/60 Pulse Oximetry 98 Oxygen Delivery Method 11/22/22 12:00 11/22/22 14:26 Temperature Pulse Rate 91 H Respiratory Rate 20 Blood Pressure Pulse Oximetry 99 94 Oxygen Delivery Method MDM - SOB/Dyspnea Lab Data 11/22/22 10:00 11/22/22 10:00 Labs: Lab Results 11/22/22 11/22/22 11/22/22 Range/Units 10:00 10:00 10:00 WBC 14.0 H (4.5-11.0) X10^3/uL RBC 4.07 L (4.5-5.9) X10^6/uL Hgb 12.2 L (13.5-17.5) g/dL Hct 36.5 L (41-53) % MCV 89.8 (80-100) fL MCH 30.1 (26-34) PG MCHC 33.5 (30-36) % RDW 12.8 (11.6-14.8) % Plt Count 134 L (150-400) X10^3/uL Neut % (Auto) 89.9 H (50-75) % Lymph % (Auto) 2.5 L (25-40) % Benton % (Auto) 7.1 (3-14) % Eos % (Auto) 0.1 L (2-4) % Baso % (Auto) 0.4 (0-2) % Neut # (Auto) 88883 H (4163-8319) /uL Lymph # (Auto) 300 L (4584-8706) /uL Benton # (Auto) 1000 H (0-900) /uL Eos # (Auto) 0 (0-450) /uL Baso # (Auto) 100 (0-100) /uL PT 14.8 H (10.1-12.7) SECONDS INR 1.3 (0.9-1.3) Sodium 138 (137-145) mmol/L Potassium 4.1 (3.4-5.1) mmol/L Chloride 105 (98-107) mmol/L Carbon Dioxide 23 (22-32) mmol/L BUN 30 H (9-20) mg/dL Creatinine 1.28 H (0.66-1.25) mg/dL Estimated GFR 59 L (>60) mL/min BUN/Creatinine Ratio 23.4 H (6-22) Glucose 152 H (80-110) mg/dL Lactate (0.7-2.1) mmol/L Calcium 9.3 (8.4-10.2) mg/dL Total Bilirubin 1.9 H (0.2-1.3) mg/dL AST 64 H (17-59) IU/L ALT 54 H (<50) IU/L Alkaline Phosphatase 120 (38-126) U/L Troponin I < 0.012 (0.01-0.034) ng/mL NT-Pro-B Natriuret Pep 1720 H (<125) pg/mL Total Protein 7.8 (6.3-8.2) g/dL Albumin 4.1 (3.5-5.0) g/dL Globulin 3.7 (1.7-4.1) g/dL Albumin/Globulin Ratio 1.1 (1.0-2.8) Urine RBC (0-5/HPF) Urine WBC (0-5/HPF) Ur Squamous Epith Cells (0-5/HPF) Urine Bacteria (None) Urine Mucus (Negative) Ur Culture Indicated? Chlamy pneumoniae PCR (Not Detect) Adenovirus (PCR) (Not Detect) B. pertussis DNA (PCR) (Not Detecte) B.parapertussis DNA PCR (Not Detecte) Coronavirus OC43 (PCR) (Not Detect) Coronavirus HKU1 (PCR) (Not Detect) Coronavirus 229E (PCR) (Not Detect) SARS-CoV-2 (PCR) (Not Detecte) Coronavirus NL63 (PCR) (Not Detect) Human Metapneumovir PCR (Not Detect) Influenza Type A (PCR) (Not Detect) Influenza Type B (PCR) (Not Detect) M. pneumoniae (PCR) (Not Detect) Parainfluenza 1 (PCR) (Not Detect) Parainfluenza 2 (PCR) (Not Detect) Parainfluenza 3 (PCR) (Not Detect) Parainfluenza 4 (PCR) (Not Detect) RSV (PCR) (Not Detect) Entero/Rhino (PCR) (Not Detect) 11/22/22 11/22/22 11/22/22 Range/Units 10:00 10:00 11:55 WBC (4.5-11.0) X10^3/uL RBC (4.5-5.9) X10^6/uL Hgb (13.5-17.5) g/dL Hct (41-53) % MCV (80-100) fL MCH (26-34) PG MCHC (30-36) % RDW (11.6-14.8) % Plt Count (150-400) X10^3/uL Neut % (Auto) (50-75) % Lymph % (Auto) (25-40) % Benton % (Auto) (3-14) % Eos % (Auto) (2-4) % Baso % (Auto) (0-2) % Neut # (Auto) (5680-6851) /uL Lymph # (Auto) (9713-7226) /uL Benton # (Auto) (0-900) /uL Eos # (Auto) (0-450) /uL Baso # (Auto) (0-100) /uL PT (10.1-12.7) SECONDS INR (0.9-1.3) Sodium (137-145) mmol/L Potassium (3.4-5.1) mmol/L Chloride (98-107) mmol/L Carbon Dioxide (22-32) mmol/L BUN (9-20) mg/dL Creatinine (0.66-1.25) mg/dL Estimated GFR (>60) mL/min BUN/Creatinine Ratio (6-22) Glucose (80-110) mg/dL Lactate 1.6 (0.7-2.1) mmol/L Calcium (8.4-10.2) mg/dL Total Bilirubin (0.2-1.3) mg/dL AST (17-59) IU/L ALT (<50) IU/L Alkaline Phosphatase (38-126) U/L Troponin I (0.01-0.034) ng/mL NT-Pro-B Natriuret Pep (<125) pg/mL Total Protein (6.3-8.2) g/dL Albumin (3.5-5.0) g/dL Globulin (1.7-4.1) g/dL Albumin/Globulin Ratio (1.0-2.8) Urine RBC 0-1/hpf (0-5/HPF) Urine WBC 1-5/hpf (0-5/HPF) Ur Squamous Epith Cells 1-5 /hpf (0-5/HPF) Urine Bacteria None seen (None) Urine Mucus 2+ H (Negative) Ur Culture Indicated? Cult not indicated Chlamy pneumoniae PCR Not detected (Not Detect) Adenovirus (PCR) Not detected (Not Detect) B. pertussis DNA (PCR) Not detected (Not Detecte) B.parapertussis DNA PCR Not detected (Not Detecte) Coronavirus OC43 (PCR) Not detected (Not Detect) Coronavirus HKU1 (PCR) Not detected (Not Detect) Coronavirus 229E (PCR) Not detected (Not Detect) SARS-CoV-2 (PCR) Detected H (Not Detecte) Coronavirus NL63 (PCR) Not detected (Not Detect) Human Metapneumovir PCR Not detected (Not Detect) Influenza Type A (PCR) Not detected (Not Detect) Influenza Type B (PCR) Not detected (Not Detect) M. pneumoniae (PCR) Not detected (Not Detect) Parainfluenza 1 (PCR) Not detected (Not Detect) Parainfluenza 2 (PCR) Not detected (Not Detect) Parainfluenza 3 (PCR) Not detected (Not Detect) Parainfluenza 4 (PCR) Not detected (Not Detect) RSV (PCR) Not detected (Not Detect) Entero/Rhino (PCR) Not detected (Not Detect) 11/22/22 Range/Units 12:21 WBC (4.5-11.0) X10^3/uL RBC (4.5-5.9) X10^6/uL Hgb (13.5-17.5) g/dL Hct (41-53) % MCV (80-100) fL MCH (26-34) PG MCHC (30-36) % RDW (11.6-14.8) % Plt Count (150-400) X10^3/uL Neut % (Auto) (50-75) % Lymph % (Auto) (25-40) % Benton % (Auto) (3-14) % Eos % (Auto) (2-4) % Baso % (Auto) (0-2) % Neut # (Auto) (4819-7761) /uL Lymph # (Auto) (6297-8589) /uL Benton # (Auto) (0-900) /uL Eos # (Auto) (0-450) /uL Baso # (Auto) (0-100) /uL PT (10.1-12.7) SECONDS INR (0.9-1.3) Sodium (137-145) mmol/L Potassium (3.4-5.1) mmol/L Chloride (98-107) mmol/L Carbon Dioxide (22-32) mmol/L BUN (9-20) mg/dL Creatinine (0.66-1.25) mg/dL Estimated GFR (>60) mL/min BUN/Creatinine Ratio (6-22) Glucose (80-110) mg/dL Lactate (0.7-2.1) mmol/L Calcium (8.4-10.2) mg/dL Total Bilirubin (0.2-1.3) mg/dL AST (17-59) IU/L ALT (<50) IU/L Alkaline Phosphatase (38-126) U/L Troponin I < 0.012 (0.01-0.034) ng/mL NT-Pro-B Natriuret Pep (<125) pg/mL Total Protein (6.3-8.2) g/dL Albumin (3.5-5.0) g/dL Globulin (1.7-4.1) g/dL Albumin/Globulin Ratio (1.0-2.8) Urine RBC (0-5/HPF) Urine WBC (0-5/HPF) Ur Squamous Epith Cells (0-5/HPF) Urine Bacteria (None) Urine Mucus (Negative) Ur Culture Indicated? Chlamy pneumoniae PCR (Not Detect) Adenovirus (PCR) (Not Detect) B. pertussis DNA (PCR) (Not Detecte) B.parapertussis DNA PCR (Not Detecte) Coronavirus OC43 (PCR) (Not Detect) Coronavirus HKU1 (PCR) (Not Detect) Coronavirus 229E (PCR) (Not Detect) SARS-CoV-2 (PCR) (Not Detecte) Coronavirus NL63 (PCR) (Not Detect) Human Metapneumovir PCR (Not Detect) Influenza Type A (PCR) (Not Detect) Influenza Type B (PCR) (Not Detect) M. pneumoniae (PCR) (Not Detect) Parainfluenza 1 (PCR) (Not Detect) Parainfluenza 2 (PCR) (Not Detect) Parainfluenza 3 (PCR) (Not Detect) Parainfluenza 4 (PCR) (Not Detect) RSV (PCR) (Not Detect) Entero/Rhino (PCR) (Not Detect) Urine Dip Bedside Urine Glucose Negative Bedside Urine Bilirubin - Negative Bedside Urine Ketone - Negative Urine Specific [place] 1.025 Bedside Urine Occult Blood - Negative Bedside Urine pH 5.5 Bedside Urine Protein + 30 Bedside Urine Urobilinogen - Negative Bedside Urine Nitrite - Negative Bedside Urine Leukocytes - Negative Esterase Imaging Data Chest x-ray: Radiologist's Impression: [address] [address] XRay Report Signed Patient: Kev Zepeda MR#: [id number] : 1950 Acct:[id number] Age/Sex: 72 / M Date of Service: 11/22/22 Loc: ED Accession Number: [id number] ?? Procedure: XR chest 1V Ordering Provider: Hank Winston MD PROCEDURE:? XR CHEST 1V ? INDICATIONS:? Shortness of breath ? TECHNIQUE:? One view of the chest was acquired.? ? COMPARISON:? [facility], CHEST 2 VIEW, 08/04/2008, 13:51.? [facility], CHEST 2 VIEW, 09/11/2014, 10:49. ? FINDINGS:? ? Surgical changes and devices:? None.? ? Lungs and pleura:? A chronic right perihilar masslike density can be seen.? Scattered pulmonary nodules are seen, which are improved compared to 2014. Low lung volumes are noted. This causes a crowded appearance to the lung markings and limits evaluation.? No pneumothorax or pleural effusion can be seen.? ? Mediastinum:? Mediastinal contours appear normal.? Heart size is normal.? ? Bones and chest wall:? Age-appropriate bony degenerative changes are seen.? No suspicious bony lesions.? Overlying soft tissues appear unremarkable.? ? ? IMPRESSION:? No scott acute abnormality is seen. ? Stable right perihilar masslike opacity. ? Improved pulmonary nodules compared to 2014. ? ? Dictated by: Rio Paulino M.D. on 11/22/2022 at 9:31 ? ? Approved by: Rio Paulino M.D. on 11/22/2022 at 9:32 ? CT scan - chest: Radiologist's Impression: [address] [address] [address] Scan Report Signed Patient: Kev Zepeda MR#: [id number] : 1950 Acct:[id number] Age/Sex: 72 / M Date of Service: 11/22/22 Loc: ED Accession Number: [id number] ?? Procedure: CT angio chest PE protocol Ordering Provider: Hank Winston MD PROCEDURE:? CT ANGIO CHEST PE PROTOCOL ? INDICATIONS:? 72-year-old male with shortness of breath and history of sarcoidosis ? TECHNIQUE:? After the administration of intravenous contrast, 2 mm thick sections acquired from the pulmonary apices to the posterior costophrenic angles.? MIP reformats of the arterial vasculature were utilized.? For radiation dose reduction, the following was used:? automated exposure control, adjustment of mA and/or kV according to patient size.? ? COMPARISON:? [facility], CT, CHEST/ABDOMEN/PELVIS WITHOUT CONTRAST, 12/04/2007, 9:32. ? FINDINGS:? Image quality:? Excellent.? ? Pulmonary arteries:? Pulmonary arteries are normal in size, and demonstrate no intraluminal filling defects to suggest central pulmonary embolism.? ? Lungs and pleura:? Dense right upper lobe pulmonary infiltrate with consolid ation.? Multiple calcified and noncalcified pulmonary nodules have improved from the prior exam.? There is multifocal and partially calcified pleural plaquing, similar prior exam.? Small right-sided pleural effusion ? Mediastinum:? Heart size within normal limits.? Bulky mediastinal adenopathy shows increasing calcification compared to the prior, consistent with sarcoidosis. ? Bones and chest wall:? No suspicious bony lesions.? Ribs and thoracic spine appear intact throughout.? Thyroid gland unremarkable.? No axillary or supraclavicular adenopathy.? ? Abdomen:? Visualized upper abdominal solid organs appear normal in the early arterial phase of enhancement.? ? IMPRESSION:? ? No evidence of pulmonary embolism, aortic dissection or aneurysm. ? Right upper lobe pulmonary infiltrate with consolidation, most consistent with pneumonia. ?Consider follow-up to resolution to exclude underlying lesion. ? Improved bilateral pulmonary nodules and densely calcified mediastinal adenopathy, consistent with history of sarcoidosis ? ? ? Approved by: German Sky M.D. on 11/22/2022 at 11:40? [facility] Narrative Medical decision making narrative: Patient is COVID vaccinated, however tested positive for COVID 3 weeks ago. Started feeling better but now feeling short of breath for the past 4 days with fever and cough. 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 Primary care is Dr. Tirado. However has not seen provider in the last 3 weeks for this complaint. Temperature 101? F this morn ing took Tylenol prior to arrival. Patient feels better after breathing treatment. No prior history of CHF, denies any weight gain or extremity edema After history and exam CBC CMP chest x-ray breathing treatment, EKG troponin BNP, respiratory panel, CT chest [facility] CC: Cough fever dyspnea Complicating co-morbidities: Sarcoidosis Data collected from: Patient and Medical records reviewed: Previous visits to primary care for COPD Differential considered: Includes but not limited to pneumonia COPD COVID CHF PE Exam documented above, pertinent findings include: Originally diminished lung sounds prior to breathing treatment Lab Test results independently reviewed as above. Pertinent findings: CBC shows WBC 04987 CMP shows BUN 30 creatinine 1.28 GFR 59 lactic acid 1.6 AST 64 ALT 54 BNP 1720 however clinically not in CHF Independently reviewed EKG as above sinus rhythm rate [address] elevation or depression, repeat EKG sinus rhythm rate [address] elevation depression. There are frequent PVC complexes Imaging studies independently reviewed: Chest x-ray no acute process, CT chest no PE. There is right lung infiltrate consistent with pneumonia Consultations: 2:52 p.m.. Spoke with primary care physician, Dr. Tirado, agrees with treatment plan, place patient on Augmentin and doxycycline. He will see patient in the office tomorrow. Treatments: Breathing treatment/normal saline Re-evaluations: 2:45 p.m.. Patient feeling much better. 94% room air when walking in the hallway. Not dyspneic. He does desire discharge home. We are waiting for primary care physician to call back for follow-up. I did review results with him. He does understand and agree for treatment for community- acquired pneumonia. Discussion: Appropriate for discharge home. Patient not requiring supplemental oxygen. Has close follow-up with primary care tomorrow. Not toxic discharge. Antibiotics started here. Patient and desire discharge home and are comfortable for discharge home. He does have a inhaler at home. Return precautions reviewed with them. Patient likely has concomitant bacterial pneumonia. He was doing much better after COVID but 3 weeks later now has pneumonia. Likely bacterial. Appropriate to start antibiotics. Diagnosis: Community-acquired pneumonia Discharge Plan Departure Patient Disposition: Home Clinical Impression: Community acquired pneumonia Instructions: DI for Pneumonia -- Adult Activity Restrictions/Additional Instructions: Please medicinal plant picker your prescription for antibiotics to continue tomorrow. It has been sent to your pharmacy. Please call your family doctor today, he is trying to schedule you for reassessment/re-evaluation in the office tomorrow. Keep well hydrated. Return if worse if any questions or concerns. Return if any trouble breathing. Use your home inhaler 2 puffs every 4 hours as needed for shortness of breath Prescriptions: New doxycycline monohydrate 100 mg capsule 100 mg PO BID Qty: 14 0RF amoxicillin-pot clavulanate 875-125 mg tablet 1 tab PO BID Qty: 14 0RF No Action metoprolol succinate 50 mg tablet extended release 24 hr 50 mg PO DAILY (DME) Contour Next Test Strips Strip See Rx Instructions .Route Qty: 100 3RF Rx Instructions: As directed Test Strips - Freestyle Q DAY Qty: 100 1RF glipizide [Glucotrol XL] 2.5 mg tablet extended release 24 hr 2.5 mg PO DAILY Qty: 90 3RF albuterol sulfate [Ventolin HFA] 90 mcg/actuation HFA aerosol inhaler 2 puff inhalation Q4HP PRN (Reason: shortness of breath or wheezing) Qty: 18 11RF tamsulosin [Flomax] 0.4 mg capsule 0.4 mg PO Q DAY Qty: 180 3RF finasteride 5 mg tablet 5 mg PO QDAY Qty: 90 3RF fluticasone propion-salmeterol [Advair Diskus] 500-50 mcg/dose blister with device 1 ea inhalation BID Qty: 180 3RF fluticasone propionate 50 mcg/actuation spray,suspension 1 spray Intranasal BID PRN (Reason: allergies) Referrals: Garrett Tirado MD [Primary Care Provider] - Stand Alone Forms: Patient Portal/API
--- NOTE | 2022-11-22 11:33 | DI.CT.S_ITS ---
PROCEDURE: CT ANGIO CHEST PE PROTOCOL INDICATIONS: 72-year-old male with shortness of breath and history of sarcoidosis TECHNIQUE: After the administration of intravenous contrast, 2 mm thick sections acquired from the pulmonary apices to the posterior costophrenic angles. MIP reformats of the arterial vasculature were utilized. For radiation dose reduction, the following was used: automated exposure control, adjustment of mA and/or kV according to patient size. COMPARISON: [facility], CT, CHEST/ABDOMEN/PELVIS WITHOUT CONTRAST, 12/04/2007, 9:32. FINDINGS: Image quality: Excellent. Pulmonary arteries: Pulmonary arteries are normal in size, and demonstrate no intraluminal filling defects to suggest central pulmonary embolism. Lungs and pleura: Dense right upper lobe pulmonary infiltrate with consolidation. Multiple calcified and noncalcified pulmonary nodules have improved from the prior exam. There is multifocal and partially calcified pleural plaquing, similar prior exam. Small right-sided pleural effusion Mediastinum: Heart size within normal limits. Bulky mediastinal adenopathy shows increasing calcification compared to the prior, consistent with sarcoidosis. Bones and chest wall: No suspicious bony lesions. Ribs and thoracic spine appear intact throughout. Thyroid gland unremarkable. No axillary or supraclavicular adenopathy. Abdomen: Visualized upper abdominal solid organs appear normal in the early arterial phase of enhancement. IMPRESSION: No evidence of pulmonary embolism, aortic dissection or aneurysm. Right upper lobe pulmonary infiltrate with consolidation, most consistent with pneumonia. Consider follow-up to resolution to exclude underlying lesion. Improved bilateral pulmonary nodules and densely calcified mediastinal adenopathy, consistent with history of sarcoidosis Approved by: German Sky M.D. on 11/22/2022 at 11:40
[2022-11-22 11:50] VITALS: PULSE 89; RESP 33
[2022-11-22] MEDS: SODIUM CHLORIDE 0.9% 500 ML 1000 ML IV (11:55)
[2022-11-22 11:56] VITALS: BP 137/61; PULSE 91; RESP 21; O2SAT 98
[2022-11-22 11:59] LABS: Adenovirus Not Detected (Not Detect); B. parapertussis Not Detected (Not Detecte); Bordetella pertussis Not Detected (Not Detecte); Chlamydophila pneumoniae Not Detected (Not Detect); Coronavirus 229E Not Detected (Not Detect); Coronavirus HKU1 Not Detected (Not Detect); Coronavirus NL 63 Not Detected (Not Detect); Coronavirus OC43 Not Detected (Not Detect); Human Metapneumovirus Not Detected (Not Detect); Human Rhinovirus/Enterovirus Not Detected (Not Detect); Influenza A Not Detected (Not Detect); Influenza B Not Detected (Not Detect); Mycoplasma pneumoniae Not Detected (Not Detect); Parainfluenza Virus 1 Not Detected (Not Detect); Parainfluenza Virus 2 Not Detected (Not Detect); Parainfluenza Virus 3 Not Detected (Not Detect); Parainfluenza Virus 4 Not Detected (Not Detect); Respiratory Syncytial Virus Not Detected (Not Detect)
[2022-11-22 12:00] VITALS: BP 133/60; PULSE 91; RESP 20; O2SAT 99
[2022-11-22 12:00] LABS: SARS- CoV-2 Detected (Not Detecte)
[2022-11-22 12:55] LABS: Bacteria Urine None Seen; Culture Indicated Urine Cult Not Indicated; Mucus Urine 2+ (Negative); RBC Urine 0-1/HPF (0-5/HPF); Squamous Epithelial Cell Urine 1-5 /HPF (0-5/HPF); WBC Urine 1-5/HPF (0-5/HPF)
[2022-11-22 13:00] LABS: Troponin I < 0.012 ng/mL (0.01-0.034)
[2022-11-22 14:26] VITALS: O2SAT 94
[2022-11-22] MEDS: DOXYCYCLINE HYCLATE 100 MG TABLET PO (15:02)
[2022-11-22] MEDS: AMOXICILLIN/CLAV 875/125 MG 1 TAB PO (15:02)
== END 2022-11-22 15:12 | disposition home or self-care (01) ==
PROVIDERS: Emergency Provider Emergency Medicine; PCP Family Medicine
DX: J18.9 Pneumonia, unspecified organism (principal); U07.1 COVID-19; R06.02 Shortness of breath
CPT/HCPCS: 36415; 71045; 71275; 80053; 81003; 81015; 83605; 83880; 84484; 85025; 85610; 87040; 87633; 93005; 93010; 94640; 96360; 96361; 99284; J7613; Q9967

== ENCOUNTER → 2023-02-20 06:59 | Outpatient (CLI) | payer MEDICARE, OTHER, SELFPAY ==
[2023-02-20 08:20] LABS: Add Manual Diff / Slide Review NO; Basophils Absolute Auto 0 /uL (0-100); Basophils Percent Auto 0.4 % (0-2); Eosinophils Absolute Auto 400 /uL (0-450); Eosinophils Percent Auto 7.6 % (2-4); Hemoglobin 12.5 g/dL (13.5-17.5); Lymphocytes Absolute Auto 1500 /uL (1100-4500); Mean Corpuscular HGB Conc 33.7 % (30-36); Mean Corpuscular Volume 91.8 fL (80-100); Monocytes Absolute Auto 600 /uL (0-900); Monocytes Percent Auto 11.7 % (3-14); Neutrophils Absolute Auto 2500 /uL (1500-7000); Neutrophils Percent Auto 50.3 % (50-75); Platelet Count 143 X10^3/uL (150-400); Red Blood Cell Count 4.03 X10^6/uL (4.5-5.9); White Blood Cell Count 4.9 X10^3/uL (4.5-11.0)
[2023-02-20 08:32] LABS: Alanine Aminotransferase 20 IU/L (<50); Albumin 4.1 g/dL (3.5-5.0); Albumin Globulin Ratio 1.2 (1.0-2.8); Alkaline Phosphatase 78 U/L (38-126); Aspartate Aminotransferase 26 IU/L (17-59); BUN Creatinine Ratio 36.8 (6-22); Bilirubin Total 0.9 mg/dL (0.2-1.3); Blood Urea Nitrogen 43 mg/dL (9-20); Calcium 9.4 mg/dL (8.4-10.2); Carbon Dioxide 27 mmol/L (22-32); Chloride 107 mmol/L (98-107); Cholesterol 198 mg/dL (140-199); Estimated Glomerular Filt Rate > 60 mL/min (>60); Globulin 3.5 g/dL (1.7-4.1); Glucose 116 mg/dL (80-110); HDL Cholesterol 80 mg/dL (40-60); HEMOLYSIS < 15 (0-50); LDL Cholesterol Calculated 105 mg/dL (<100); Potassium 4.8 mmol/L (3.4-5.1); Sodium 142 mmol/L (137-145); Total Protein 7.6 g/dL (6.3-8.2); Triglycerides 67 mg/dL (35-150)
[2023-02-20 09:13] LABS: Creatinine Urine Random 131.2 mg/dL
[2023-02-20 09:18] LABS: Microalbumi Creatinin Ratio Ur 9.9 ug/mg CR (<30); Microalbumin Urine Random 1.3 mg/dL (0-1.6)
== END ==
PROVIDERS: PCP Family Medicine; Referring Provider Family Medicine; Visit Provider Family Medicine
DX: E11.9 Type 2 diabetes mellitus without complications (principal); J44.9 Chronic obstructive pulmonary disease, unspecified; N18.2 Chronic kidney disease, stage 2 (mild); D86.9 Sarcoidosis, unspecified; D69.6 Thrombocytopenia, unspecified
CPT/HCPCS: 36415; 80053; 80061; 82043; 82570; 83036; 85025

== ENCOUNTER → 2023-07-06 08:27 | Outpatient (CLI) | payer MEDICARE, OTHER, SELFPAY ==
[2023-07-06 08:56] LABS: Add Manual Diff / Slide Review NO; Basophils Absolute Auto 0 /uL (0-100); Basophils Percent Auto 0.8 % (0-2); Eosinophils Absolute Auto 400 /uL (0-450); Eosinophils Percent Auto 8.1 % (2-4); Hematocrit 35.3 % (41-53); Hemoglobin 11.9 g/dL (13.5-17.5); Lymphocytes Absolute Auto 1500 /uL (1100-4500); Lymphocytes Percent Auto 28.3 % (25-40); Mean Corpuscular HGB Conc 33.6 % (30-36); Mean Corpuscular Hemoglobin 30.9 PG (26-34); Mean Corpuscular Volume 91.9 fL (80-100); Monocytes Absolute Auto 600 /uL (0-900); Monocytes Percent Auto 11.4 % (3-14); Neutrophils Absolute Auto 2700 /uL (1500-7000); Neutrophils Percent Auto 51.4 % (50-75); Platelet Count 155 X10^3/uL (150-400); Red Blood Cell Count 3.84 X10^6/uL (4.5-5.9); Red Cell Distribution Width 13.3 % (11.6-14.8); White Blood Cell Count 5.3 X10^3/uL (4.5-11.0)
[2023-07-06 09:05] LABS: Hemoglobin A1C% w Est Avg Glu 5.6 % (4.0-6.0)
[2023-07-06 09:29] LABS: Alanine Aminotransferase 22 IU/L (<50); Albumin 4.2 g/dL (3.5-5.0); Albumin Globulin Ratio 1.3 (1.0-2.8); Alkaline Phosphatase 74 U/L (38-126); Aspartate Aminotransferase 26 IU/L (17-59); BUN Creatinine Ratio 40.6 (6-22); Blood Urea Nitrogen 52 mg/dL (9-20); Calcium 9.9 mg/dL (8.4-10.2); Carbon Dioxide 27 mmol/L (22-32); Chloride 105 mmol/L (98-107); Estimated Glomerular Filt Rate 58 mL/min (>60); Globulin 3.3 g/dL (1.7-4.1); Glucose 100 mg/dL (80-110); HEMOLYSIS < 15 (0-50); Potassium 4.8 mmol/L (3.4-5.1); Sodium 139 mmol/L (137-145); Total Protein 7.5 g/dL (6.3-8.2)
== END ==
PROVIDERS: PCP Family Medicine; Referring Provider Family Medicine; Visit Provider Family Medicine
DX: E11.9 Type 2 diabetes mellitus without complications (principal); I50.22 Chronic systolic (congestive) heart failure
CPT/HCPCS: 36415; 80053; 83036; 85025

== ENCOUNTER → 2023-07-12 14:26 | Outpatient (ROUT) | payer MEDICARE, OTHER, SELFPAY ==
[2023-07-13 19:21] LABS: Fecal Immunochemical Test Negative (Negative)
== END ==
PROVIDERS: PCP Family Medicine; Visit Provider Family Medicine
DX: E11.9 Type 2 diabetes mellitus without complications (principal); J44.9 Chronic obstructive pulmonary disease, unspecified; N18.2 Chronic kidney disease, stage 2 (mild)
CPT/HCPCS: 82274

== ENCOUNTER → 2023-07-20 07:54 | Outpatient (CLI) | payer MEDICARE, OTHER, SELFPAY ==
--- NOTE | 2023-07-20 07:55 | DI.ECHO.S_ITS ---
[facility] +---------+ : : [address] : [place] : : : : [id number] : : : : Phone: [phone]+ Echocardiogram Report + + :Name: DODIE MARKS Study Date: 07/20/2023 Height: 71 in : :[facility] ReadingLocation: Weight: 151 lb : : Gender: Male BSA: 1.9 m2 : :: 1950 Age: 73 yrs BP: 137/76 mmHg: :Reason For Study: FATIGUE WITH HEART FAILURE : :Ordering Physician: ISABEL, : :JOSE RAUL Performed By: Natalia Waldrop : :Referring: JOSE RAUL HALL : + + Interpretation Summary The left ventricle is normal in size and wall thickness. Left ventricular systolic function is mildly reduced. The ejection fraction is estimated to be 45-50%. LVEF has slightly worsened since prior study. There is mild global hypokinesis of the left ventricle. Diastolic parameters suggest a relaxation abnormality of the left ventricle, consistent with probable normal filling pressures. The right ventricle is normal in size and function. The right ventricular systolic pressure is estimated to be at least 37 mmHg based on an estimated right atrial pressure of 8 mm Hg. The left atrium is mildly dilated. There is mild mitral regurgitation. There is mild to moderate pulmonic regurgitation. The aortic root is normal size. Procedure: A two-dimensional transthoracic echocardiogram with color flow and Doppler was performed. The study quality was technically adequate. Comparison is made with the echocardiogram of 10/31/2021. The patient was in sinus bradycardia with heart rates between 53-62 bpm during the exam. Left Ventricle: The left ventricle is normal in size and wall thickness. Left ventricular systolic function is mildly reduced. The ejection fraction is estimated to be 45-50%. There is mild global hypokinesis of the left ventricle. Diastolic parameters suggest a relaxation abnormality of the left ventricle, consistent with probable normal filling pressures. Right Ventricle: The right ventricle is normal in size and function. Atria: The left atrium is mildly dilated. Right atrial size is normal. There is no Doppler evidence for an interatrial shunt. Mitral Valve: The mitral valve is normal in structure and function. There is mild mitral regurgitation. Aortic Valve: The aortic valve is trileaflet. The aortic valve is mildly calcified. There is minimally reduced leaflet mobility. The peak aortic velocity is 1.9 m/sec. The aortic valve mean gradient is 8 mmHg. There is trace aortic regurgitation. Tricuspid Valve: The tricuspid valve is normal in structure and function. There is mild tricuspid regurgitation. The right ventricular systolic pressure is estimated to be at least 37 mmHg based on an estimated right atrial pressure of 8 mm Hg. Pulmonic Valve: The pulmonic valve leaflets are thin and pliable; valve motion is normal. There is mild to moderate pulmonic regurgitation. Great Vessels: The aortic root is normal size. The dimensions of the ascending aorta are normal. The IVC is dilated (diameter is greater than 2.1 cm) yet it collapses greater than 50% with a sniff. This suggests a right atrial pressure of 8 mm Hg. Pericardium/ Pleura There is no pericardial effusion. There is no pleural effusion. MMode/2D Measurements & Calculations LVIDd: 5.3 cm LVOT diam: 2.2 cm LVIDs: 4.2 cm Ao root diam: 3.1 cm FS: 20.0 % asc Aorta Diam: 2.9 cm EPSS: 1.3 cm Ao Arch Diam (Prox Trans): 3.0 cm IVSd: 0.68 cm LVPWd: 0.71 cm LV baxter. diameter/BSA (cm/m^2): 2.8 LV sys. diameter/BSA (cm/m^2): 2.3 LA A2 area: 20.2 cm2 RA long axis: 5.4 cm LA A4 area: 19.6 cm2 RA area: 16.8 cm2 LA length (vol): 5.1 cm RA vol: 44.6 ml LA vol: 65.4 ml RA : 23.8 ml/m2 LA vol index: 35.0 ml/m2 IVC diam: 2.3 cm RVD1 (basal): 3.3 cm RVD2 (mid): 2.9 cm TAPSE: 2.1 cm Doppler Measurements & Calculations Ao V2 max: 185.3 cm/sec LVOT Max Shin: 69.1 cm/sec Ao V2 mean: 130.1 cm/sec LV V1 max P.9 mmHg Ao max P.6 mmHg LV V1 VTI: 19.3 cm Ao mean P.1 mmHg DANIEL(I,D): 1.6 cm2 Ao V2 VTI: 48.3 cm DANIEL(V,D): 1.5 cm2 sev ratio: 0.40 DANIEL indexed to BSA (cm^2/m^2): 0.83 MV E max shin: 62.9 cm/sec TR max shin: 268.6 cm/sec MV A max sihn: 70.8 cm/sec TR max P.9 mmHg MV E/A: 0.89 PA V2 max: 74.2 cm/sec Med Peak E' Shin: 6.2 cm/sec PA V2 mean: 50.2 cm/sec E/E' med: 10.1 PA mean P.2 mmHg Lat Peak E' Shin: 5.5 cm/sec PA pr(Accel): 19.1 mmHg E/E' lat: 11.5 E/e' average: 10.8 MV dec time: 0.26 sec SV(LVOT): 75.2 ml Reading Physician:12:[id number] PM
[2023-07-20 08:45] LABS: HEMOLYSIS < 15 (0-50); Iron 90 ug/dL (49-181)
[2023-07-20 08:56] LABS: Percent Iron Saturation 33 % (20-50); Total Iron Binding Capacity 269 ug/dL (261-462); Transferrin 183 mg/dL (206-381)
[2023-07-20 09:20] LABS: Ferritin 117 ng/mL (18-464)
[2023-07-20 09:51] LABS: Folate 7.2 ng/mL (2.76-20.0); Vitamin B12 300 pg/mL (239-931)
== END ==
PROVIDERS: PCP Family Medicine; Referring Provider Family Medicine; Visit Provider Family Medicine
DX: I50.22 Chronic systolic (congestive) heart failure (principal); D64.9 Anemia, unspecified; I51.7 Cardiomegaly; I34.0 Nonrheumatic mitral (valve) insufficiency; I37.1 Nonrheumatic pulmonary valve insufficiency
CPT/HCPCS: 36415; 82607; 82728; 82746; 83540; 83550; 93306

== ENCOUNTER → 2024-02-07 07:26 | Outpatient (CLI) | payer OTHER, SELFPAY ==
[2024-02-07 08:47] LABS: Hemoglobin A1C% w Est Avg Glu 6.5 % (4.0-6.0)
[2024-02-07 09:25] LABS: Alanine Aminotransferase 23 IU/L (<50); Albumin 4.5 g/dL (3.5-5.0); Albumin Globulin Ratio 1.3 (1.0-2.8); Alkaline Phosphatase 78 U/L (38-126); Aspartate Aminotransferase 30 IU/L (17-59); BUN Creatinine Ratio 35.8 (6-22); Bilirubin Total 1.2 mg/dL (0.2-1.3); Blood Urea Nitrogen 49 mg/dL (9-20); Calcium 9.6 mg/dL (8.4-10.2); Carbon Dioxide 24 mmol/L (22-32); Chloride 109 mmol/L (98-107); Cholesterol 199 mg/dL (140-199); Estimated Glomerular Filt Rate 54 mL/min (>60); Globulin 3.4 g/dL (1.7-4.1); Glucose 81 mg/dL (80-110); HDL Cholesterol 72 mg/dL (40-60); HEMOLYSIS < 15 (0-50); LDL Cholesterol Calculated 113 mg/dL (<100); Potassium 5.1 mmol/L (3.4-5.1); Sodium 137 mmol/L (137-145); Total Protein 7.9 g/dL (6.3-8.2); Triglycerides 70 mg/dL (35-150)
[2024-02-07 09:52] LABS: TSH w/ Reflex to FT4 2.61 uIU/mL (0.47-4.68)
[2024-02-07 09:58] LABS: Creatinine Urine Random 88.7 mg/dL
[2024-02-07 10:03] LABS: Microalbumi Creatinin Ratio Ur 14.6 ug/mg CR (<30); Microalbumin Urine Random 1.3 mg/dL (0-1.6)
== END ==
PROVIDERS: PCP Family Medicine; Referring Provider Family Medicine; Visit Provider Family Medicine
DX: E11.9 Type 2 diabetes mellitus without complications (principal); N18.2 Chronic kidney disease, stage 2 (mild); Z12.5 Encounter for screening for malignant neoplasm of prostate; D64.9 Anemia, unspecified; D69.6 Thrombocytopenia, unspecified; N40.0 Benign prostatic hyperplasia without lower urinary tract symptoms; I50.22 Chronic systolic (congestive) heart failure
CPT/HCPCS: 36415; 80053; 80061; 82043; 82570; 83036; 84443; G0103

== ENCOUNTER → 2024-04-23 07:33 | Outpatient (CLI) | payer OTHER, SELFPAY ==
[2024-04-23 08:22] LABS: Hematocrit 35.7 % (41-53); Mean Corpuscular HGB Conc 33.5 % (30-36); Mean Corpuscular Hemoglobin 31.1 PG (26-34); Platelet Count 142 X10^3/uL (150-400); Red Blood Cell Count 3.84 X10^6/uL (4.5-5.9); Red Cell Distribution Width 13.1 % (11.6-14.8); White Blood Cell Count 5.3 X10^3/uL (4.5-11.0)
[2024-04-23 08:39] LABS: BUN Creatinine Ratio 34.1 (6-22); Blood Urea Nitrogen 43 mg/dL (9-20); Calcium 9.2 mg/dL (8.4-10.2); Carbon Dioxide 25 mmol/L (22-32); Chloride 109 mmol/L (98-107); Cholesterol 197 mg/dL (140-199); Estimated Glomerular Filt Rate 59 mL/min (>60); Glucose 113 mg/dL (80-110); HDL Cholesterol 82 mg/dL (40-60); HEMOLYSIS < 15 (0-50); LDL Cholesterol Calculated 102 mg/dL (<100); Potassium 4.7 mmol/L (3.4-5.1); Sodium 141 mmol/L (137-145); Triglycerides 65 mg/dL (35-150)
== END ==
PROVIDERS: PCP Family Medicine; Referring Provider Internal Medicine Cardiovascular Disease; Visit Provider Internal Medicine Cardiovascular Disease
DX: E11.9 Type 2 diabetes mellitus without complications (principal); I42.8 Other cardiomyopathies
CPT/HCPCS: 36415; 80048; 80061; 85027

== ENCOUNTER → 2024-09-02 09:55 | Outpatient (CLI) | payer OTHER, SELFPAY ==
--- NOTE | 2024-09-02 09:56 | DI.RAD.S_ITS ---
PROCEDURE: XR CHEST 2V INDICATIONS: Cough and chest congestion; Hx of sarcoid and COPD TECHNIQUE: 2 views of the chest were acquired. COMPARISON: [facility], ILEANA, XR CHEST 1V, 11/22/2022, 10:11. [facility], CR, CHEST 2 VIEW, 09/11/2014, 10:49. FINDINGS: Surgical changes and devices: None. Lungs and pleura: Bilateral extensive pleural calcifications are present. Multiple bilateral pulmonary nodules are again seen. Extensive fibrotic changes are again noted. Lungs are hyperinflated. Mediastinum: Mediastinal contours are normal. Heart size is normal. Calcified mediastinal lymph nodes are present. Bones and chest wall: No suspicious bony abnormalities. Soft tissues appear unremarkable. 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 Dictated by: Dieudonne Cabezas M.D. on 09/02/2024 at 10:32 Approved by: Dieudonne Cabezas M.D. on 09/02/2024 at 10:38
== END ==
PROVIDERS: PCP Family Medicine; Referring Provider Physician Assistant; Visit Provider Physician Assistant
DX: D86.0 Sarcoidosis of lung (principal); J44.9 Chronic obstructive pulmonary disease, unspecified; R05.9 Cough, unspecified
CPT/HCPCS: 71046

== ENCOUNTER → 2025-01-05 08:33 | Outpatient (CLI) | payer OTHER, SELFPAY ==
[2025-01-05 09:04] LABS: Add Manual Diff / Slide Review NO; Basophils Absolute Auto 100 /uL (0-100); Basophils Percent Auto 0.9 % (0-2); Eosinophils Absolute Auto 400 /uL (0-450); Eosinophils Percent Auto 6.2 % (2-4); Hematocrit 38.5 % (41-53); Hemoglobin 12.6 g/dL (13.5-17.5); Lymphocytes Absolute Auto 1900 /uL (1100-4500); Lymphocytes Percent Auto 30.6 % (25-40); Mean Corpuscular HGB Conc 32.7 % (30-36); Mean Corpuscular Hemoglobin 30.1 PG (26-34); Mean Corpuscular Volume 91.9 fL (80-100); Monocytes Absolute Auto 600 /uL (0-900); Monocytes Percent Auto 9.8 % (3-14); Neutrophils Absolute Auto 3200 /uL (1500-7000); Neutrophils Percent Auto 52.5 % (50-75); Platelet Count 204 X10^3/uL (150-400); Red Blood Cell Count 4.18 X10^6/uL (4.5-5.9); White Blood Cell Count 6.1 X10^3/uL (4.5-11.0)
[2025-01-05 09:17] LABS: Hemoglobin A1C% w Est Avg Glu 5.7 % (4.0-6.0)
[2025-01-05 09:24] LABS: Alanine Aminotransferase 21 IU/L (<50); Albumin 4.4 g/dL (3.5-5.0); Albumin Globulin Ratio 1.3 (1.0-2.8); Alkaline Phosphatase 86 U/L (38-126); Aspartate Aminotransferase 27 IU/L (17-59); BUN Creatinine Ratio 34.4 (6-22); Bilirubin Total 0.9 mg/dL (0.2-1.3); Blood Urea Nitrogen 45 mg/dL (9-20); Calcium 9.8 mg/dL (8.4-10.2); Carbon Dioxide 23 mmol/L (22-32); Chloride 107 mmol/L (98-107); Cholesterol 202 mg/dL (140-199); Estimated Glomerular Filt Rate 56 mL/min (>60); Globulin 3.4 g/dL (1.7-4.1); Glucose 140 mg/dL (80-110); HDL Cholesterol 77 mg/dL (40-60); HEMOLYSIS < 15 (0-50); LDL Cholesterol Calculated 112 mg/dL (<100); Potassium 5.2 mmol/L (3.4-5.1); Sodium 139 mmol/L (137-145); Total Protein 7.8 g/dL (6.3-8.2); Triglycerides 65 mg/dL (35-150)
[2025-01-05 09:54] LABS: Prostate Specific Antigen 1.43 ng/mL (0.10-4.00)
== END ==
LOC: LAB 08:34
PROVIDERS: PCP Family Medicine; Referring Provider Family Medicine; Visit Provider Family Medicine
DX: E11.9 Type 2 diabetes mellitus without complications (principal); N18.32 Chronic kidney disease, stage 3b; D64.9 Anemia, unspecified; I50.22 Chronic systolic (congestive) heart failure; D86.9 Sarcoidosis, unspecified; D69.6 Thrombocytopenia, unspecified
CPT/HCPCS: 36415; 80053; 80061; 83036; 84153; 84443; 85025

== ENCOUNTER → 2025-08-26 08:23 | Outpatient (CLI) | payer OTHER, SELFPAY ==
[2025-08-26 08:57] LABS: Hemoglobin A1C% w Est Avg Glu 6.1 % (4.0-6.0)
[2025-08-26 09:05] LABS: Blood Urea Nitrogen 41 mg/dL (9-20); Calcium 9.6 mg/dL (8.4-10.2); Carbon Dioxide 24 mmol/L (22-32); Chloride 107 mmol/L (98-107); Estimated Glomerular Filt Rate 50 mL/min (>60); Glucose 115 mg/dL (70-99); HEMOLYSIS < 15 (0-50); Sodium 140 mmol/L (137-145)
[2025-08-26 09:06] LABS: Potassium 5.5 mmol/L (3.4-5.1)
== END ==
PROVIDERS: PCP Family Medicine; Referring Provider Family Medicine; Visit Provider Family Medicine
DX: E11.9 Type 2 diabetes mellitus without complications (principal); Z12.11 Encounter for screening for malignant neoplasm of colon; N18.32 Chronic kidney disease, stage 3b
CPT/HCPCS: 36415; 80048; 82274; 83036